=== PATIENT | male | born 1950 | race Caucasian/White ===

== ENCOUNTER 2016-10-30 10:43 | Inpatient (IN) ==
--- NOTE | 2016-10-30 11:00 | Diag Imaging Result Doc PS360 ---
EXAM: HEAD W/O CONTRAST HISTORY: POSSIBLE STROKE TECHNIQUE: CT of the head without contrast, helical COMMENT: There is atherosclerotic calcification in the left vertebral, the basilar and both internal carotid arteries. There are patchy lucencies in the periventricular white matter of both hemispheres particularly around the frontal horns. Compared to 12/10/2011 there is been no significant change in the appearance of the brain. The visualized paranasal sinuses are clear. The calvarium is intact. IMPRESSION: Chronic ischemic changes and atherosclerosis. No definite evidence of acute disease. If clinically indicated further evaluation with MRI may be desirable. Electronically signed by Francois Low 10/30/2016 10:58 AM
[2016-10-30] MEDS ORDERED: NS 1,000 ML IV PRN (11:04)
[2016-10-30 11:49] LABS: MANUAL DIFF NEEDED? NO
[2016-10-30 11:52] LABS: BASO% 0.1 % (0.0-0.8); EOS# 0.04 X1000 (0.0-0.7); EOS% 0.4 % (0.0-10.0); HEMATOCRIT 43.3 % (42.0-52.0); HEMOGLOBIN 14.9 g/dL (14.0-18.0); IMM GRAN# 0.02 X1000 (0.0-0.04); IMM GRAN% 0.2 % (0.0-0.5); LYMPH# 1.79 X1000 (1.2-3.4); LYMPH% 17.6 % (20.5-51.1); MCH 29.2 PG (27-31); MCHC 34.4 g/dL (33-37); MCV 84.9 FL (81-99); MONO# 0.83 X1000 (0.11-0.59); MONO% 8.2 % (1.7-9.3); MPV 10.3 FL (7.4-10.4); NEUT% 73.5 % (42.2-75.2); PLT 242 X1000 (130-400)
[2016-10-30 12:01] LABS: INR 1.01; PROTIME 10.6 Seconds (9.2-11.7); PTT 26.4 Seconds (22.0-36.0)
--- NOTE | 2016-10-30 12:02 | Diag Imaging Result Doc PS360 ---
EXAM: CHEST-PORTABLE INDICATION: stroke like symptoms TECHNIQUE: One view COMPARISON: 10/24/2016 FINDINGS: Inspiration is suboptimal. Mild subsegmental atelectasis at the lung bases is stable. There are no new consolidations. Cardiac silhouette is stable. IMPRESSION: Stable low lung volumes and suggestion of mild right basilar subsegmental atelectasis. Electronically signed by Triston Hurst 10/30/2016 12:00 PM
[2016-10-30 12:14] LABS: AGAP 17; ALBUMIN 4.2 g/dL (3.5-5.0); ALKALINE PHOSPHATASE 135 U/L (32-122); BUN 19 mg/dL (8-22); CALCIUM 9.1 mg/dL (8.8-10.2); CHLORIDE 97 mmol/L (98-107); COSMO 282; GOT 21 U/L (10-34); GPT 26 U/L (10-44); POTASSIUM 4.8 mmol/L (3.5-5.1); SODIUM 134 mmol/L (136-145); TCO2 20 mmol/L (25-35); TOTAL BILIRUBIN 0.26 mg/dL (0.20-1.00); TOTAL PROTEIN 7.6 g/dL (6.3-8.3)
--- NOTE | 2016-10-30 12:17 | EKG Report ---
Test Performed on : 10/30/2016 11:16:56 AM Test Reason : STROKE Blood Pressure : / mmHG Vent. Rate : 072 BPM Atrial Rate : 072 BPM P-R Int : 176 ms QRS Dur : 080 ms QT Int : 430 ms P-R-T Axes : 053 -34 008 degrees QTc Int : 470 ms Normal sinus rhythm. Left axis deviation Cannot rule out Anterior infarct (cited on or before 24-OCT-2016) Abnormal ECG When compared with ECG of 24-OCT-2016 08:28, (Unconfirmed) Questionable change in initial forces of Anterior leads Unconfirmed Result
[2016-10-30 12:21] LABS: URINE CULTURE NEEDED? NO; URINE MICRO REVIEW NEEDED? NO; URINE SOURCE CATH
[2016-10-30 12:25] LABS: BILIRUBIN URINE NEGATIVE (NEGATIVE); BLOOD URINE NEGATIVE (NEGATIVE); COLOR YELLOW; GLUCOSE URINE >1000 mg/dL (NEGATIVE); LEUKOCYTES URINE NEGATIVE (NEGATIVE); NITRITE URINE NEGATIVE (NEGATIVE); PROTEIN URINE TRACE mg/dL (NEGATIVE); SP GRAVITY URINE 1.035; TURBIDITY URINE CLEAR (CLEAR); UR EPITHELIAL CELLS <10 /HPF (<10); URINE BACTERIA NEGATIVE /HPF; URINE RBC <10 /HPF (<10); URINE WBC <10 /HPF (<10); UROBILINOGEN URINE NORMAL (NORMAL)
[2016-10-30 12:50] LABS: UR AMPHETAMINES QUAL NONE DETECTED (NONE DETECT); UR BARBITUATES QUAL NONE DETECTED (NONE DETECT); UR BENZODIAZEPIN QUAL NONE DETECTED (NONE DETECT); UR CANNABINOIDS QUAL PRESUMPTIVE POSITIVE (NONE DETECT); UR COCAINE QUAL NONE DETECTED (NONE DETECT); UR METHADONE QUAL NONE DETECTED (NONE DETECT); UR OPIATES QUAL NONE DETECTED (NONE DETECT); UR OXYCODONE QUAL NONE DETECTED (NONE DETECT); UR PCP QUAL NONE DETECTED (NONE DETECT)
--- NOTE | 2016-10-30 13:03 | PROVIDER DOCUMENTATION ---
This chart was entered by Marvin Christensen Scribe, acting as scribe for Mateo Mccray MD. HPI-Neurological Disorder - General Chief Complaint: Brain Attack Stated Complaint: UNRESPONSIVE Time Seen by Provider: 10/30/16 11:09 Source: patient, EMS Allergies/Adverse Reactions: Patient Allergies Allergy/AdvReac Type Severity Reaction Status Date / Time No Known Allergies Allergy Verified 10/30/16 11:36 Home Medications: Home Medication List Medication Instructions Recorded Confirmed Last Taken Type Hydrocodone Bit/Acetaminophen 1 each PO Q6H PRN 12/04/13 10/30/16 12/02/13 History [Hydrocodon-Acetaminophn 10-500] Levetiracetam [Levetiracetam ER] 750 gm PO BID 12/04/13 10/30/16 10/29/16 18:00 History Losartan Potassium 50 mg PO DAILY 12/04/13 10/30/16 10/29/16 18:00 History Omeprazole 40 mg PO QAM 12/04/13 10/30/16 10/29/16 08:00 History Metformin [Glucophage] 500 mg PO BID CC 10/30/16 10/30/16 10/29/16 18:00 History - History of Present Illness-Neuro Nature of Presenting Problem: 65 yo M presents to the ER via EMS. PT was found by who called EMS. PT was found unresponsive on floor, is unsure of downtime. PT has a hx of strokes. Pt is confused and his speech is slurred. PT also favors his left side. Onset/Duration: reports: this afternoon Timing: reports: still present Context: reports: found unresponsive by family Approximate time patient was last seen normal?: 04:00 Character of Altered Mental Status: reports: confused Character of Deficits: reports: altered sensation, impaired speech New weakness or altered sensation location:: reports: LUE, LLE, left facial Review of Systems - Adult - REVIEW OF SYSTEMS - ADULT ROS:: limited per condition Constitutional: denies: chills, fever Respiratory: denies: cough Neurological: reports: see HPI, slurred speech All Other Systems: Reviewed and Negative Past History - Adult - PAST MEDICAL HISTORY-ADULT Review of Records: reports: Old Records Reviewed, Nursing Assessment Review, Medications Reviewed, Social history reviewed & non-contributory. Major Childhood Illnesses: reports: denies history Cardiovascular: reports: HTN Respiratory: reports: denies history Gastrointestinal: reports: denies history Obstetrical/Gynecological: reports: denies history Genitourinary: reports: denies history Musculoskeletal: reports: denies history Neurological: reports: Seizures/Epilepsy Endocrine/Immune: reports: denies history Other Conditions: reports: denies history - PRIOR SURGERIES/PROCEDURES Surgical/Procedure History: reports: appendectomy - IMMUNIZATION STATUS Childhood Immunizations: See Nurse Assessment Flu Vaccine: See Nurse Assessment - FAMILY HISTORY Family History: reviewed, not pertinent Physical Exam- Neurological - Physical Exam-Neuro Initial Vital Signs Reviewed: Yes General Appearance: other (confused) Respiratory: chest non-tender, lungs clear Cardiovascular: normal peripheral pulses, regular rate, rhythm 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 Exam: PERRL, abnormal speech, facial droop Motor/Sensory: other (unable to acsess senstaions, favors L side, limited because pt is confused) Neurologic: facial droop Integumentary: normal color, normal turgor, warm/dry Progress - PLAN OF CARE/RESULTS Progress/Plan/Lab Results: Vital Signs - 8 hr 10/30/16 11:00 10/30/16 11:46 10/30/16 11:54 Temperature 98 F Pulse Rate 69 81 74 Respiratory Rate 19 21 18 Blood Pressure 168/88 146/100 148/83 O2 Sat by Pulse Oximetry 98 98 97 10/30/16 12:56 Temperature Pulse Rate 71 Respiratory Rate 17 Blood Pressure 156/94 O2 Sat by Pulse Oximetry 99 Laboratory Results - last 24 hr 10/30/16 10/30/16 10/30/16 11:25 11:25 11:25 WBC 10.15 RBC 5.10 Hgb 14.9 Hct 43.3 MCV 84.9 MCH 29.2 MCHC 34.4 RDW Std Deviation 12.9 Plt Count 242 MPV 10.3 Immature Gran % (Auto) 0.2 Neut % (Auto) 73.5 Lymph % (Auto) 17.6 L [place] % (Auto) 8.2 Eos % (Auto) 0.4 Baso % (Auto) 0.1 Immature Gran # (Auto) 0.02 Neut # (Auto) 7.46 H Lymph # (Auto) 1.79 [place] # (Auto) 0.83 H Eos # (Auto) 0.04 Baso # (Auto) 0.01 PT INR PTT (Actin FS) Sodium 134 L Potassium 4.8 Chloride 97 L Carbon Dioxide 20 L Anion Gap 17 BUN 19 Creatinine 0.8 Estimated GFR/1.73 m2 > 60 BUN/Creatinine Ratio 24 Glucose 301 H Calculated Osmolality 282 Calcium 9.1 Total Bilirubin 0.26 AST 21 ALT 26 Alkaline Phosphatase 135 H Creatine Kinase 46 Troponin T Total Protein 7.6 Albumin 4.2 Globulin 3.4 Albumin/Globulin Ratio 1.2 Urine Source Urine Color Urine Turbidity Urine pH Ur Specific [place] Urine Protein Ur Glucose (Stick) Ur Ketones (Stick) Urine Blood Urine Nitrite Urine Bilirubin Urobilinogen Dipstick Urine Leukocytes Urine WBC (Auto) Urine RBC (Auto) U Epithel Cells (Auto) Urine Bacteria (Auto) Urine Opiates Screen Ur Oxycodone Screen Ur Methadone, Qual Ur Barbiturates Screen Ur Phencyclidine Scrn Ur Amphetamines Screen U Benzodiazepines Scrn Urine Cocaine Screen U Cannabinoids Screen 10/30/16 10/30/16 10/30/16 11:25 11:25 12:16 WBC RBC Hgb Hct MCV MCH MCHC RDW Std Deviation Plt Count MPV Immature Gran % (Auto) Neut % (Auto) Lymph % (Auto) [place] % (Auto) Eos % (Auto) Baso % (Auto) Immature Gran # (Auto) Neut # (Auto) Lymph # (Auto) [place] # (Auto) Eos # (Auto) Baso # (Auto) PT 10.6 INR 1.01 PTT (Actin FS) 26.4 Sodium Potassium Chloride Carbon Dioxide Anion Gap BUN Creatinine Estimated GFR/1.73 m2 BUN/Creatinine Ratio Glucose Calculated Osmolality Calcium Total Bilirubin AST ALT Alkaline Phosphatase Creatine Kinase Troponin T < 0.010 Total Protein Albumin Globulin Albumin/Globulin Ratio Urine Source CATH Urine Color YELLOW Urine Turbidity CLEAR Urine pH 6.0 Ur Specific [place] 1.035 Urine Protein TRACE A Ur Glucose (Stick) >1000 A Ur Ketones (Stick) NEGATIVE Urine Blood NEGATIVE Urine Nitrite NEGATIVE Urine Bilirubin NEGATIVE Urobilinogen Dipstick NORMAL Urine Leukocytes NEGATIVE Urine WBC (Auto) <10 Urine RBC (Auto) <10 U Epithel Cells (Auto) <10 Urine Bacteria (Auto) NEGATIVE Urine Opiates Screen Ur Oxycodone Screen Ur Methadone, Qual Ur Barbiturates Screen Ur Phencyclidine Scrn Ur Amphetamines Screen U Benzodiazepines Scrn Urine Cocaine Screen U Cannabinoids Screen 10/30/16 12:16 WBC RBC Hgb Hct MCV MCH MCHC RDW Std Deviation Plt Count MPV Immature Gran % (Auto) Neut % (Auto) Lymph % (Auto) [place] % (Auto) Eos % (Auto) Baso % (Auto) Immature Gran # (Auto) Neut # (Auto) Lymph # (Auto) [place] # (Auto) Eos # (Auto) Baso # (Auto) PT INR PTT (Actin FS) Sodium Potassium Chloride Carbon Dioxide Anion Gap BUN Creatinine Estimated GFR/1.73 m2 BUN/Creatinine Ratio Glucose Calculated Osmolality Calcium Total Bilirubin AST ALT Alkaline Phosphatase Creatine Kinase Troponin T Total Protein Albumin Globulin Albumin/Globulin Ratio Urine Source Urine Color Urine Turbidity Urine pH Ur Specific [place] Urine Protein Ur Glucose (Stick) Ur Ketones (Stick) Urine Blood Urine Nitrite Urine Bilirubin Urobilinogen Dipstick Urine Leukocytes Urine WBC (Auto) Urine RBC (Auto) U Epithel Cells (Auto) Urine Bacteria (Auto) Urine Opiates Screen NONE DETECTED Ur Oxycodone Screen NONE DETECTED Ur Methadone, Qual NONE DETECTED Ur Barbiturates Screen NONE DETECTED Ur Phencyclidine Scrn NONE DETECTED Ur Amphetamines Screen NONE DETECTED U Benzodiazepines Scrn NONE DETECTED Urine Cocaine Screen NONE DETECTED U Cannabinoids Screen PRESUMPTIVE POSITIVE A Orders Category Date Time Status Cardiac Monitoring DIRECTED Care 10/30/16 11:04 Active Finger Stick Blood Sugar (ED) DIRECTED Care 10/30/16 11:04 Active [place] Insertion ORDERED Care 10/30/16 12:12 Active Misc. NRSG Communication Order DIRECTED Care 10/30/16 11:04 Active Saline Loc NOW Care 10/30/16 11:04 Active CHEST-PORTABLE [RAD] Stat Exams 10/30/16 11:04 Completed HEAD W/O CONTRAST [CT] Stat Exams 10/30/16 10:39 Completed MRA BRAIN W/O CONTRAST [MRI] Stat Exams 10/30/16 12:54 Ordered MRA NECK W/O CONT [MRI] Stat Exams 10/30/16 12:54 Ordered MRI BRAIN W W/O CONTRAST [MRI] Stat Exams 10/30/16 12:54 Ordered CBC WITH ELECTRONIC DIFF [HEME] Stat Lab 10/30/16 11:25 Completed CK PROFILE [SP CHEM] Stat Lab 10/30/16 11:25 Completed COMPREHENSIVE METABOLIC PANEL [CHEM] Stat Lab 10/30/16 11:25 Completed PROTIME WITH INR [COAG] Stat Lab 10/30/16 11:25 Completed PTT [COAG] Stat Lab 10/30/16 11:25 Completed TROPONIN T Stat Lab 10/30/16 11:25 Completed URINALYSIS W/POSS RFLX CULT-1 [URINALYSIS] Stat Lab 10/30/16 12:16 Completed URINE DRUG SCREEN Stat Lab 10/30/16 12:16 Completed 0.9% Sodium Chloride Inj [Ns] 1,000 ml Med 10/30/16 11:04 Active IV Wide Open EKG [EKG] Stat Ther 10/30/16 11:04 Draft Result Diagrams: 10/30/16 11:25 10/30/16 11:25 - EKG 1 Time of EKG reading by physician:: 11:36 EKG Read and Signed by:: Mateo Mccray EKG Interpretation (*Must complete 3 of following elements*): Abnormal Rate: 72 Rhythm: NSR [place]: left QRS: normal [place] Interval: normal Comments: can't rule outanterior infarct, age undetermined - CT/MRI 1 CT Study: Head Impression: Abnormal Comparison with other Films: changes noted CT Results: chronic ischemic changes and artherosclerosis. no def evidence of acute dis - CONSULTS/PCP/HOSPITALIST Notification #1 *Consult/PCP/Hospitalist*: Dr Beverly Time Discussed: 12:59 Consult Disposition: Admit Departure - Departure Date of Disposition Decision: 10/30/16 Time of Disposition Decision: 12:59 DIAGNOSIS: Hyperglycemia CVA (cerebral vascular accident) Qualifiers: CVA mechanism: unspecified Qualified Code(s): I63.9 - Cerebral infarction, unspecified Altered mental status Qualifiers: Altered mental status type: unspecified Qualified Code(s): R41.82 - Altered mental status, unspecified Disposition: ADMITTED INPATIENT 09 Certified Medical Emergency: Emergent Condition: Fair Referrals and Follow-Ups: None,PCP [Primary Care Provider] - - Critical Care Note This patient required my direct & personal management of CC.: Yes Total Time (mins): 40 Critical Care Statement: This patient required my direct personal management to treat or rule out processes, the absence of which, could potentiallly result in sudden, clinically significant life or limb threatening deterioration. Comments: A 65 y/o M who presented after he was found on the floor by his girlfriend, last known normal was 4 AM in morning, presented after 8 hours of last known normal, pt minima coperative exam limited, stable given bolus of fluids CT head negative, no TPA as he is not the candidate will admit to hospitalist This chart was documented by the indicated scribe, (Marvin Christensen, Scribe) and accurately reflects the services I performed and decisions made by me, Mateo Mccray MD, as attested by the provider's signature.
--- NOTE | 2016-10-30 14:14 | Diag Imaging Result Doc PS360 ---
EXAM: MRA BRAIN W/O CONTRAST HISTORY: cva TECHNIQUE: 3-D [id number] COMMENT: There is no demonstration of the internal carotid on the left. There appears to be collateral flow in the A1 segment and middle cerebral on the left through the anterior communicating artery. Very poor due to demonstration of distal branches are of any vessel is demonstrated. There is very poor demonstration of the posterior circulation the basilar artery and left posterior cerebral artery are not demonstrated at all. IMPRESSION: Possibility of occlusion of the left internal carotid artery and basilar artery cannot be excluded. Electronically signed by Francois Low 10/30/2016 2:12 PM
--- NOTE | 2016-10-30 14:16 | Diag Imaging Result Doc PS360 ---
EXAM: MRA NECK W/CONT HISTORY: cva TECHNIQUE: MRA of the neck with contrast COMMENT: Both vertebral arteries are demonstrated throughout much of their length. There is no demonstration of the basilar artery. There is apparent occlusion of the internal carotid artery from its origin to the middle cerebral. There is a questionable stenosis of the proximal left common carotid artery. IMPRESSION: Possibility of occlusion of the mid basilar and the entire internal carotid artery on the left cannot be excluded. Electronically signed by Francois Low 10/30/2016 2:14 PM
--- NOTE | 2016-10-30 14:25 | Diag Imaging Result Doc PS360 ---
EXAM: MRI BRAIN W W/O CONTRAST HISTORY: cva TECHNIQUE: MRI of the brain with and without gadolinium, 3-D FSPGR with gadolinium, T1 sagittal and axial, T2 and FLAIR axial, DWI axial, gradient echo coronal and post gadolinium coronal reconstructed T1. COMMENT: There is apparent restricted diffusion in the cortex and subcortical white matter of the left posterior temporal lobe. There are some punctate areas of restricted diffusion in the occipital lobe on the left in the medial right temporal lobe. There is no evidence of bleed. The T2-weighted images are markedly degraded by patient motion. There is a centimeter long segment of occlusion in the proximal basilar artery. There are some chronic increased T2-weighted signal intensity microvascular changes in the periventricular white matter both hemispheres particularly around the frontal horns and atria. Increased T2-weighted signal intensity is present in the gyri of the posterior temporal and occipital lobes on the left. IMPRESSION: Subacute infarction in the posterior hemisphere on the left. This is apparently associated with occlusion of the proximal basilar artery. The findings were discussed with Nikko Colbert at 10/30/2016 2:22 PM. Electronically signed by Francois Low 10/30/2016 2:23 PM
[2016-10-30] MEDS ORDERED: NS 1,000 ML IV ONE (15:00)
[2016-10-30] MEDS ORDERED: ATIVAN IV PRN ×2 (15:38)
[2016-10-30] MEDS ORDERED: APRESOLINE IV PRN (15:38)
[2016-10-30] MEDS ORDERED: SODIUM CHLORIDE 0.9% INJ SCH (15:45)
[2016-10-30] MEDS ORDERED: PROTONIX IV SCH (15:45)
[2016-10-30] MEDS ORDERED: CEREBYX IV ONE ×2 (15:55→17:00)
[2016-10-30] MEDS ORDERED: ASPIRIN PR SCH (15:56)
[2016-10-30 16:11] VITALS: BP 148/94
--- NOTE | 2016-10-30 16:36 | HISTORY AND PHYSICAL ---
CHIEF COMPLAINT: Altered mental status. HISTORY OF PRESENT ILLNESS: Mr. Hu is a 65-year-old male with a history of alcohol dependence, marijuana dependence, seizures, morbid obesity, diabetes mellitus, hypertension, who presents emergently to the ER this morning with acute onset of altered mental status. At this time, the patient cannot give any type of history secondary to his neurologic status. His is at the bedside and is able to answer detailed history. Apparently, he was in his normal state of health even up to this morning early when he let his dog out. His went back and checked on him. It was unclear exactly at what time, perhaps around 6. He had fallen in his bedroom but his could not get him up. She states, at that time, he was not having any slurred speech. He was not having any type of neurologic deficits other than the fact that he could not get up off the floor. His grandson came over to help, but they were unable to move him because of his weight and his inability to help. At some point, they called an ambulance and the patient came to the ER. Initial head CT did not show anything acute, but we went ahead and ordered an MRI which, unfortunately, shows subacute infarction of the posterior hemisphere on the left. There is exclusion of the proximal basilar artery. We also ordered an MRA of the head and neck which showed possible entire occlusion of the internal carotid artery on the left. When the patient got back from back from MRI, his neurologic status has changed to the point that he is no longer answering questions. He has right-sided lele-neglect and will not follow commands. He is nonverbal and has a left-sided facial droop. Currently, his hemodynamics are stable, but, given the acuity and location of his stroke and occlusion, we are going to put him in the ICU with a consultation with Dr. Valerio. PAST MEDICAL HISTORY: 1. Hypertension. 2. Diabetes mellitus. 3. Seizure disorder. 4. Alcohol dependence. 5. Marijuana dependence. 6. Questionable CKD. 7. Hyperlipidemia. 8. Poor medical compliance. SURGICAL HISTORY: Knee arthroplasty, appendectomy, hip surgery. FAMILY HISTORY: Significant for hypertension, heart disease, and diabetes. SOCIAL HISTORY: His states that he drinks quite a bit of vodka a day. She is unclear exactly how much, perhaps, a pint a day. He also smokes marijuana daily, but he does not smoke cigarettes. ALLERGIES: No known drug allergies. HOME MEDICATIONS: 1. [place] 10 one p.o. every 6 hours as needed. 2. Keppra 750 g p.o. b.i.d. 3. Losartan 50 mg 50 mg daily. 4. Glucophage 500 mg p.o. b.i.d. 5. Omeprazole 40 mg daily p.o. q.a.m. REVIEW OF SYSTEMS: Unable to obtain. PHYSICAL EXAMINATION: VITAL SIGNS: Blood pressure is 189/107, heart rate is 85, respiratory rate is 18, O2 saturation is 98% on room air. Temperature is 98.7 degrees. GENERAL: This is a morbidly obese and disheveled appearing 65-year-old male lying in hospital bed in no acute distress. NEUROLOGIC: The patient is awake and somewhat alert. He will not follow commands. He laughs inappropriately when asked basic questions. He will not follow commands, but he does seem to be moving his left side a little bit better than the right. He has a right-sided lele-neglect. HEENT: Head atraumatic and normocephalic. Pupils are equal, round, and reactive to light. His oral mucosa is moist. His trachea is midline. No appreciable carotid bruits. CHEST: Diminished at the bases but clear to auscultation bilaterally. CARDIOVASCULAR: Regular rate and rhythm. S1-S2 is noted. There are no murmurs. GASTROINTESTINAL: Soft, nondistended, nontender. Bowel sounds positive. EXTREMITIES: No edema. Pulses diminished but palpable bilaterally. DIAGNOSTIC DATA: Brain MRI left internal carotid and basilar artery occlusion with left posterior hemisphere infarction. Chest x-ray shows stable low lung volumes with suggestion of mild right basilar subsegmental atelectasis. Head CT shows chronic ischemic changes without evidence of acute disease. EKG shows normal sinus rhythm, low voltage, poor R-wave progression, inferior Q-waves and left axis deviation. LABORATORY DATA: WBC 10.15, hemoglobin 14.9, hematocrit 43.3, platelet count 242,000. PT 10.6, INR 1.01, sodium 134, potassium 4.8, chloride 97, CO2 of 20, anion gap 17. BUN 19, creatinine 0.8 glucose is 301, calcium 9.1, bilirubin 0.26. AST 21, ALT 26, alkaline phosphatase 135. Troponin negative. UA is negative for acute process. Does show greater than 1000 glucose and trace protein toxicology positive for cannabinoids. ASSESSMENT AND PLAN: 1. Acute cerebrovascular accident with basilar and internal and carotid artery occlusion: The patient will be admitted to the ICU, we will maintain elevated cerebral perfusion pressures. Continue IV fluids. We will consult Dr. Valerio. Continue neuro checks and consult speech and physical therapy. We will make sure he gets rectal aspirin now and daily and check a lipid panel, hemoglobin A1c in the morning. 2. Diabetes mellitus: Check a hemoglobin A1c. Add pattern sugars sliding scale insulin. 3. Alcohol dependence: We will need to monitor for withdrawals. We will start a banana bag, check B12 and folate. Continue IV fluids and have p.r.n. Ativan on standby. 4. Seizure disorder: We will check Keppra levels, consult Dr. Valerio and hold his p.o. Keppra for now. 5. No signs of seizure per . 6. Hypertension: Antihypertensives on hold to allow for elevated cerebral perfusion pressure. 7. Deep venous thrombosis prophylaxis will be provided with SCDs and TEDs. Further recommendations to follow. Dictated by DAILY Vanessa for Paradise Beverly MD cc: DAILY Vanessa MD
[2016-10-30] MEDS ORDERED: NS IV ONE (17:00)
--- NOTE | 2016-10-30 18:13 | CONSULTATION ---
DATE OF CONSULTATION: 10/30/2016 HISTORY OF PRESENT ILLNESS: Mr. 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 He has chronic left carotid occlusion. He is not able to provide history. History is taken from review of available records and discussion with his girlfriend. She reports he had some sort of stroke-like event 8 months ago with workup in [place] and we do not have those records. He spent about a week in the hospital by her report and was discharged to rehab. He has been a little slow getting around, but mostly independent since then. Girlfriend is not aware of definite focal neurologic feature. He saw his primary physician as recently as yesterday. This morning, he was up talking to his dogs and seemed well. Later in the morning he called to the girlfriend and she found him on the floor, unable to get up, but able to move both arms and he was awake, alert, talking appropriately then. She was not able to help him up. Ambulance was summoned and he presented to the emergency room. Initially, he was reported to be following some simple commands, but that may have been inconsistent. Gradually, he became less attentive. Workup includes brain MRI showing evidence of acute left posterior temporal and occipital infarction, but no definite report of brain stem infarction. There is evidence of basilar artery occlusion. Carotid ultrasound and MRA document the longstanding left internal carotid occlusion. EXAMINATION: On exam, he is supine, breathing regularly. He has full lateral eye movement with passive head turning. When I moved from one side of the bed to the other, he sometimes seemed to follow me, but never consistently. Pupils are both round and react to light. Corneal reflex is present bilaterally, more brisk on the right. Facial motility seems a little bit diminished bilaterally. Palate is midline. He did not move his arms and legs purposefully. With noxious stimulation, he extended right limbs vigorously and rotated right arm with less prominent rigidity in the left limbs. Plantar response is briskly extensor bilaterally. Lab work this admission shows urine drug screen positive for cannabinoids, negative for all other. He has some minor metabolic findings, including moderately elevated blood sugars , but nothing that generally would be associated with encephalopathy. He has been afebrile. Blood pressures have ranged 140s to 190s systolic. There is a past history of seizure disorder treated chronically with levetiracetam. Seizure control has seemed good. Girlfriend believes he takes the levetiracetam correctly and she is not aware of seizure in recent months. IMPRESSION: Worrisome clinical picture with apparent basilar artery thrombosis which may be acute, acute dominant left hemisphere infarction, concern for impending brain stem infarction. We are limited with management options here. He needs to be considered for transfer. We can continue fluids, maintain elevated blood pressure, follow him clinically, consider repeat imaging if he deteriorates further. We can consider electroencephalogram to make sure he is not having seizures, but that will not be available in this facility until tomorrow morning. Therefore, we have empirically loaded him with fosphenytoin and will continue levetiracetam. Thanks for asking me to see Mr. Hu. I have discussed uncertain, but likely very poor prognosis frankly and at length with his girlfriend. cc: Eli Valerio III, MD MTDD
[2016-10-30 19:02] LABS: FREE T4 1.46 ng/dL (0.93-1.70)
[2016-10-31] MEDS ORDERED: M.V.I.-12 10 ML, FOLIC ACID 1 MG, MAGNESIUM SULFATE 1 GM, THIAMINE 100 MG in NS 1,000 ML IV SCH (09:00)
--- NOTE | 2016-10-31 19:32 | Carotid Study ---
DATE: 10/30/2016 PROCEDURE: Bilateral duplex and color flow imaging of the carotid arteries performed using a [employer] Vivid E9 ultrasound system with 9L-D transducer. REFERRING PHYSICIAN: Emergency Department INTERPRETING PHYSICIAN: ARASH: Linda Rhodes RVT INDICATIONS: Carotid stenosis, ICD10 165.29. The patient has had an MRA of the brain and MRA of the neck. These studies suggested the complete occlusion of the left internal carotid artery. They do not mention the right carotid system. OBSERVED DATA RIGHT LEFT Brachial Blood Pressure Carotid Pulse Bruits: Carotid/Sub DIAGRAM OF ULTRASOUND IMAGING R L RIGHT INT EXT INT EXT LEFT Chris (cm/s) Chris (cm/s) Subclavian 61/0 Subclavian 94/0 CCA Proximal 116/31 CCA Proximal 102/9 CCA Distal 93/28 CCA Distal 100/0 Bulb 84/19 Bulb 78/7 ICA Proximal 188/59 ICA Proximal 0 ICA Mid 156/50 ICA Mid 0 ICA Distal 105/39 ICA Distal 0 ECA 99/18 ECA 74/5 Vertebral Vertebral ICA/CCA Ratio 1.62 ICA/CCA Ratio 0 % Stenosis 60-79% % Stenosis 100% PHYSICIAN INTERPRETATION: There is complete occlusion of the left internal carotid artery. There is severe atherosclerotic disease of the distal common and internal carotid artery that is approaching hemodynamic significance. cc: MD Paradise Mina MD
--- NOTE | 2016-11-13 12:08 | DISCHARGE SUMMARY ---
ADMISSION DATE: 10/30/2016 DISCHARGE DATE: 10/30/2016 FINAL DISCHARGE DIAGNOSES: 1. 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 2. Diabetes mellitus type 2. 3. Alcohol dependence. 4. Seizure disorder. 5. Hypertension. CONSULTATION REQUESTED DURING THIS HOSPITAL STAY: Neurology consultation with Dr. Valerio. HOSPITAL COURSE: Mr. Hu is a 65-year-old male with a history of alcohol and marijuana dependence, seizure disorder, morbid obesity and diabetes, who presented to the ER with altered mental status via EMS. On admission, a head CT was done that revealed chronic ischemic changes, but nothing acute. This was followed up with an MRI of the brain, MRA of the neck and MRA of the brain. The MRI of the brain revealed a subacute infarction involving the posterior hemisphere on the left, as well as occlusion of the proximal basilar artery. Clinically the patient was noted to be minimally responsive. Neurology was consulted immediately in the ER. A carotid duplex study was also done that revealed complete occlusion of the left internal carotid artery, as well as 60% to 79% stenosis involving the right carotid artery. The patient was transferred to the ICU and the case was discussed with the on-call neurologist, Dr. Isbell, at [facility]. The patient was accepted for transfer to [facility] for further treatment and evaluation. The plan of care was discussed with the patient's and family. cc: Paradise Beverly MD
== END 2016-10-30 18:07 | disposition short-term general hospital (02) ==
LOC: ED 10:43 → ICU 15:57
PROVIDERS: ATTEND Internal Medicine